=== PATIENT | male | born 1985 | race Caucasian/White ===

== ENCOUNTER 2017-10-31 15:49 | Emergency (ER) | payer OTHER ==
[~2017-10-31] VITALS: Ht 167.6 cm; Wt 67.3 kg
[2017-10-31 16:49] LABS: HEMATOCRIT 45.8 % (38.0-50.0); HEMOGLOBIN 16.4 G/DL (12.5-16.6); MCH 30.5 PG (29.0-34.0); MCHC 35.8 G/DL (30.0-36.0); MCV 85.1 FL (86-99); PLATELET COUNT 186 K/uL (156-360); RBC DIS.WIDTH-CV 11.7 % (11.8-14.6); RBC DIS.WIDTH-SD 35.3 % (39-53); RED BLOOD COUNT 5.38 M/uL (4.00-5.50); WHITE BLOOD COUNT 11.1 K/uL (4.1-10.2)
[2017-10-31 16:55] LABS: ALBUMIN 4.2 g/dL (3.2-4.8)
[2017-10-31 16:56] LABS: CHLORIDE 102 mEq/L (99-109); POTASSIUM 3.8 mEq/L (3.7-5.4); SODIUM 138 mEq/L (136-147)
[2017-10-31 16:58] LABS: GLUCOSE 136 mg/dL (70-99); TOTAL PROTEIN 7.4 g/dL (6.4-8.3)
[2017-10-31 17:00] LABS: TOTAL BILIRUBIN 0.7 mg/dL (0.0-1.0)
[2017-10-31 17:01] LABS: ALKALINE PHOSPHATASE 88 IU/L (3-129)
[2017-10-31 17:02] LABS: GFR ESTIMATE (CALCULATED) > 59 mL/min/ (58.99-99999)
[2017-10-31 17:03] LABS: AST (GOT) 17 IU/L (2-34); UREA NITROGEN (BUN) 15 mg/dL (9-23)
[2017-10-31 17:05] LABS: ALT (GPT) 25 IU/L (3-49); LIPASE 13 U/L (1.0-51.0)
[2017-10-31] MEDS ORDERED: ZOFRAN ODT4 MG PO (18:01)
[2017-10-31 19:18] VITALS: BP 123/80
== END 2017-10-31 19:14 | disposition home or self-care (01) ==
LOC: EME 15:49
PROVIDERS: Physician Assistant
DX: R11.2 Nausea with vomiting, unspecified (principal)
CPT/HCPCS: 80053; 83690; 85027; 99281; 99285; J2765; J7030; S0028